=== PATIENT | female | born 1990 | race Caucasian/White ===

== ENCOUNTER → 2020-02-26 00:01 | Outpatient (BNVA) | payer BC, SELFPAY | PROVIDERS: Family Provider Family Medicine; PCP Family Medicine; Visit Provider Obstetrics & Gynecology | DX: B97.7 Papillomavirus as the cause of diseases classified elsewhere (principal); Z12.4 Encounter for screening for malignant neoplasm of cervix | CPT/HCPCS: 88175 ==

== ENCOUNTER → 2021-02-28 08:26 | Outpatient (BNVA) | payer BC, SELFPAY | PROVIDERS: Family Provider Family Medicine; PCP Family Medicine; Visit Provider Obstetrics & Gynecology | DX: Z12.4 Encounter for screening for malignant neoplasm of cervix (principal); Z86.19 Personal history of other infectious and parasitic diseases | CPT/HCPCS: 87624 ==

== ENCOUNTER → 2024-06-05 15:33 | Outpatient (BNVA) | payer BC, SELFPAY | PROVIDERS: Family Provider Family Medicine; PCP Family Medicine; Visit Provider Nurse Practitioner Women's Health | DX: Z01.419 Encounter for gynecological examination (general) (routine) without abnormal findings (principal) | CPT/HCPCS: 87624 ==